=== PATIENT | male | born 1980 | race Caucasian/White ===

== ENCOUNTER 2020-03-30 06:59 | Emergency (ER) | payer BC ==
[2020-03-30] MEDS ORDERED: Sodium Chloride 0.9% 10 ML Syringe FLUSH PRN (07:32)
[2020-03-30] MEDS ORDERED: Diltiazem 25 MG/5 ML SDV IVPUSH ONE (07:32)
[2020-03-30] MEDS ORDERED: Diltiazem 25 MG/5 ML SDV ONE (07:36)
[2020-03-30] MEDS ORDERED: Sodium Chloride 0.9% 1,000 ML IV SCH ×2 (07:45→09:00)
--- NOTE | 2020-03-30 07:46 | EDM.PDOC ---
ED HPI GENERAL MEDICAL PROBLEM - General Chief Complaint: Cardiovascular Problem Stated Complaint: HEART PALPATIONS Time Seen by Provider: 03/30/20 07:31 Source of Information: Reports: Patient, RN Notes Reviewed History Limitations: Reports: No Limitations - History of Present Illness INITIAL COMMENTS - FREE TEXT/NARRATIVE: 39-year-old gentleman presents emergency department a complaint of palpitations, he has a history of SVT several years ago he states for this particular event palpitations started early this morning felt fine yesterday he did admit that he was out on the water most of the day.drinking much water drink plenty of beer little bit of food last meal was last night. He does feel short of breath no chest pain no nausea or vomiting no diaphoresis. His significant other is present which provides more history he may have been going in and out of atrial fibrillation for the last 6 months - Related Data Allergies Allergy/AdvReac Type Severity Reaction Status Date / Time No Known Allergies Allergy Verified 03/30/20 07:21 Home Meds: Home Meds Albuterol Sulfate [Albuterol Sulfate Hfa] 2 puff INH DAILY 03/30/20 [History] Fluticasone/Salmeterol [Advair 100-50] 2 puff INH DAILY 03/30/20 [History] Losartan Potassium 50 mg PO DAILY 03/30/20 [History] Nebivolol [Bystolic] 10 mg PO DAILY 03/30/20 [History] Past Medical History Cardiovascular History: Reports: Arrhythmia (SVT several years ago), Hypertension Respiratory History: Reports: Asthma - Past Surgical History Cardiovascular Surgical History: Reports: None Social & Family History - Tobacco Use Smoking Status *Q: Never Smoker - Caffeine Use Caffeine Use: Reports: Coffee - Recreational Drug Use Recreational Drug Use: No ED ROS GENERAL - Review of Systems Review Of Systems: See Below Constitutional: Reports: No Symptoms Respiratory: Reports: Shortness of Breath Cardiovascular: Reports: Palpitations. Denies: Chest Pain GI/Abdominal: Reports: No Symptoms ED EXAM, GENERAL - Physical Exam Exam: See Below Exam Limited By: No Limitations General Appearance: Alert, WD/WN, No Apparent Distress Respiratory/Chest: No Respiratory Distress, Lungs Clear, Normal Breath Sounds, No Accessory Muscle Use, Chest Non-Tender Cardiovascular: No Murmur, Irregularly Irregular Course - Vital Signs Last Recorded V/S: Last Vital Signs Temp 94.7 F L 03/30/20 07:20 Pulse 58 L 03/30/20 07:54 Resp 9 L 03/30/20 07:54 BP 100/52 L 03/30/20 07:54 Pulse Ox 98 03/30/20 07:54 - Orders/Labs/Meds Orders: Active Orders 24 hr Category Date Time Status Cardiac Monitoring [RC] .As Directed Care 03/30/20 07:33 Active EKG Documentation Completion [RC] ASDIRECTED Care 03/30/20 07:33 Active Peripheral IV Care [RC] . DIRECTED Care 03/30/20 07:33 Active Sodium Chloride 0.9% [Normal Saline] 1,000 ml Med 03/30/20 07:45 Active IV ASDIRECTED Sodium Chloride 0.9% [Normal Saline] 1,000 ml Med 03/30/20 09:00 Active IV ASDIRECTED Sodium Chloride 0.9% [Saline Flush] Med 03/30/20 07:32 Active 10 ml FLUSH ASDIRECTED PRN ED Antiarrhythmia Med Reflex [OM.PC] Stat Oth 03/30/20 07:33 Ordered Peripheral IV Insertion Adult [OM.PC] Stat Oth 03/30/20 07:32 Ordered EKG 12 Lead [EK] Stat Ther 03/30/20 07:33 Ordered Medication Orders Sodium Chloride (Normal Saline) 1,000 mls @ 999 mls/hr IV ASDIRECTED [facility] Last Admin: 03/30/20 07:39 Dose: 999 mls/hr Documented by: MIGUEL Sodium Chloride (Normal Saline) 1,000 mls @ 999 mls/hr IV ASDIRECTED [facility] Last Admin: 03/30/20 08:54 Dose: 999 mls/hr Documented by: MIGUEL Sodium Chloride (Saline Flush) 10 ml FLUSH ASDIRECTED PRN PRN Reason: Keep Vein Open Last Admin: 03/30/20 07:36 Dose: 10 ml Documented by: MIGUEL Labs: Laboratory Tests 03/30/20 03/30/20 Range/Units 07:30 07:30 WBC 9.0 (4.5-11.0) K/uL RBC 5.37 (4.30-5.90) M/uL Hgb 15.8 H (12.0-15.0) g/dL Hct 46.3 (40.0-54.0) % MCV 86 (80-98) fL MCH 29 (27-31) pg MCHC 34 (32-36) % Plt Count 283 (150-400) K/uL Neut % (Auto) 57 (36-66) % Lymph % (Auto) 30 (24-44) % [place] % (Auto) 10 H (2-6) % Eos % (Auto) 3 (2-4) % Baso % (Auto) 1 (0-1) % Sodium 155 H (140-148) mmol/L Potassium 5.3 H (3.6-5.2) mmol/L Chloride 118 H (100-108) mmol/L Carbon Dioxide 23 (21-32) mmol/L Anion Gap 19.3 H (5.0-14.0) mmol/L BUN 16 (7-18) mg/dL Creatinine 1.0 (0.8-1.3) mg/dL Est Cr Clr Drug Dosing 107.78 mL/min Estimated GFR (MDRD) > 60 (>60) Glucose 134 H (74-106) mg/dL Calcium 8.7 (8.5-10.1) mg/dL Troponin I < 0.017 (0.000-0.056) ng/mL Meds: Medications Generic Name Dose Route Start Last Admin Trade Name Freq PRN Reason Stop Dose Admin Sodium Chloride 1,000 mls @ 999 mls/hr 03/30/20 07:45 03/30/20 07:39 Normal Saline IV 999 mls/hr ASDIRECTED SANDRITA Administration Sodium Chloride 1,000 mls @ 999 mls/hr 03/30/20 09:00 03/30/20 08:54 Normal Saline IV 999 mls/hr ASDIRECTED SANDRITA Administration Sodium Chloride 10 ml 03/30/20 07:32 03/30/20 07:36 Saline Flush FLUSH 10 ml ASDIRECTED PRN Administration Keep Vein Open Discontinued Medications Generic Name Dose Route Start Last Admin Trade Name Freq PRN Reason Stop Dose Admin Diltiazem HCl 25 mg 03/30/20 07:32 03/30/20 07:37 Diltiazem IVPUSH 03/30/20 07:33 25 mg ONETIME ONE Administration Diltiazem HCl Confirm 03/30/20 07:36 03/30/20 07:41 Diltiazem Administered 03/30/20 07:37 Not Given Dose 25 mg .ROUTE .STK-MED ONE Diltiazem HCl 100 mg/ Sodium 100 mls @ 5 mls/hr 03/30/20 09:30 03/30/20 09:36 Chloride IV 5 mg/hr TITRATE SANDRITA 5 mls/hr Administration Protocol 5 MG/HR Departure - Departure Time of Disposition: 10:24 Disposition: Home, Self-Care 01 Condition: Fair Clinical Impression: Persistent atrial fibrillation Instructions: Atrial Fibrillation Referrals: PCP,None [Primary Care Provider] - Forms: ED Department Discharge Additional Instructions: Recommend start the Xarelto today 1 tablet once a day this will thin your blood to help prevent any blood clotting, also recommend increasing your Bystolic from 10 mg once a day to 15 mg once a day and try and avoid any dehydration situation which may induce the atrial fibrillation at a rapid rate again. 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 for further evaluation which may include cardioversion and or ablation call or return to the emergency department with worsening of symptoms Sepsis Event Note (ED) - Evaluation Sepsis Screening Result: No Definite Risk - Focused Exam Vital Signs: Vital Signs Temp Pulse Resp BP Pulse Ox 03/30/20 07:54 58 L 9 L 100/52 L 98 03/30/20 07:20 94.7 F L 86 12 113/81 97 03/30/20 07:12 94.7 F L 86 12 113/81 97 - My Orders Last 24 Hours: My Active Orders 03/30/20 07:32 Sodium Chloride 0.9% [Saline Flush] 10 ml FLUSH ASDIRECTED PRN Peripheral IV Insertion Adult [OM.PC] Stat 03/30/20 07:33 Cardiac Monitoring [RC] .As Directed EKG Documentation Completion [RC] ASDIRECTED Peripheral IV Care [RC] . DIRECTED ED Antiarrhythmia Med Reflex [OM.PC] Stat EKG 12 Lead [EK] Stat 03/30/20 07:45 Sodium Chloride 0.9% [Normal Saline] 1,000 ml IV ASDIRECTED 03/30/20 09:00 Sodium Chloride 0.9% [Normal Saline] 1,000 ml IV ASDIRECTED - Assessment/Plan Last 24 Hours: My Active Orders 03/30/20 07:32 Sodium Chloride 0.9% [Saline Flush] 10 ml FLUSH ASDIRECTED PRN Peripheral IV Insertion Adult [OM.PC] Stat 03/30/20 07:33 Cardiac Monitoring [RC] .As Directed EKG Documentation Completion [RC] ASDIRECTED Peripheral IV Care [RC] . DIRECTED ED Antiarrhythmia Med Reflex [OM.PC] Stat EKG 12 Lead [EK] Stat 03/30/20 07:45 Sodium Chloride 0.9% [Normal Saline] 1,000 ml IV ASDIRECTED 03/30/20 09:00 Sodium Chloride 0.9% [Normal Saline] 1,000 ml IV ASDIRECTED Plan: Assessment Acuity = acute Site and laterality = atrial fibrillation persistent Etiology = unknown Manifestations = dyspnea Location of injury = Home Lab values = CBC unremarkable sodium low elevated 155 consistent hyponatremia potassium elevated 5.3 consistent hyperkalemia troponins negative initial EKG rate 114 with atrial fibrillation Plan Initially given bolus of Cardizem which did slow him down initially in the 70s however he remained in atrial fibrillation I did talk to him about options and with his significant other presents it sounds like he may have been going in and out of this for some time so this is unknown duration atrial fibrillation recommending anticoagulation at this time since his chads score is 1 given history of hypertension he does have a family history of venous thromboembolism in the family with sister and father. Started on Xarelto 20 mg 1 tablet once a day he is can follow-up with his primary care and referral to cardiology for cardioversion and also to for evaluation for ablation, also increase his Bystolic from 10 mg once a day to 15 mg once a day This note was dictated using [employer] voice recognition software please call with any questions on syntax or grammar.
[2020-03-30] MEDS ORDERED: Diltiazem 100 MG in Sodium Chloride 0.9% 100 ML IV SCH ×4 (09:30)
[2020-03-30] MEDS ORDERED: Rivaroxaban 10 MG Tab PO ONE (10:37)
== END 2020-03-30 10:55 | disposition home or self-care (01) ==
LOC: JP.ED 06:59
DX: I48.19 Other persistent atrial fibrillation (principal); J45.909 Unspecified asthma, uncomplicated; I10 Essential (primary) hypertension; Z79.899 Other long term (current) drug therapy
CPT/HCPCS: 36415; 80048; 84484; 85025; 93005; 96365; 96376; 99285; A9270; J3490; J7030; J7050; 93010; 99283